=== PATIENT | female | born 1960 | race Caucasian/White ===

== ENCOUNTER → 2025-06-01 14:12 | Outpatient (REF) | payer OTHER, SELFPAY | LOC: RAD 14:12 | PROVIDERS: ATTENDING PHYSICIAN Family Medicine | DX: M79.671 Pain in right foot (principal) | CPT/HCPCS: 73620 ==

== ENCOUNTER → 2025-07-01 17:41 | Outpatient (REF) | payer OTHER, SELFPAY | LOC: RAD 17:41 | PROVIDERS: ATTENDING PHYSICIAN Nurse Practitioner Family | DX: M25.562 Pain in left knee (principal) | CPT/HCPCS: 73564 ==

== ENCOUNTER 2025-08-19 06:25 | Outpatient (RCR) | payer OTHER, SELFPAY | END 2025-08-19 23:59 | disposition home or self-care (01) | LOC: RPT 06:25 | PROVIDERS: ATTENDING PHYSICIAN Orthopaedic Surgery; FAMILY PHYSICIAN Nurse Practitioner Family | DX: S83.412D Sprain of medial collateral ligament of left knee, subsequent encounter (principal); Z73.6 Limitation of activities due to disability; R26.89 Other abnormalities of gait and mobility; M62.81 Muscle weakness (generalized); W54.1XXD Struck by dog, subsequent encounter | CPT/HCPCS: 97110; 97162 ==